=== PATIENT | female | born 1960 | race Caucasian/White ===

== ENCOUNTER 2016-08-09 02:23 | Emergency (ER) | payer OTHER ==
[2016-08-09] MEDS ORDERED: Bupivacaine 0.5% 10 ML VIAL ONE (02:40)
[2016-08-09] MEDS ORDERED: Tetracaine HCl 0.5% Ophth Soln 2 ML Bottle ONE (02:41)
[2016-08-09] MEDS ORDERED: Ketorolac Tromethamine 60 MG/2 ML VIAL ONE (03:34)
[2016-08-09] MEDS ORDERED: Fluorescein Opthalmic Strip ONE (04:05)
[2016-08-09] MEDS ORDERED: Sodium Chloride 0.9% 2,000 ML ONE (04:07)
[2016-08-09] MEDS ORDERED: Fentanyl 100 MCG/2 ML VIAL ONE ×2 (04:22→04:46)
[2016-08-09] MEDS ORDERED: Midazolam HCl 2 mg/2 ml Vial ONE ×2 (04:22→04:46)
[2016-08-09] MEDS ORDERED: Naloxone HCl 0.4 mg/ml Vial ONE (04:35)
[2016-08-09] MEDS ORDERED: Sodium Chloride 0.9% 1,000 ML ONE (05:03)
[2016-08-09] MEDS ORDERED: prednisoLONE 1% Ophth Susp 5 ml Bottle ONE (05:21)
== END 2016-08-09 05:50 | disposition home or self-care (01) ==
LOC: NAV ERS 02:23
DX: H10.213 Acute toxic conjunctivitis, bilateral (principal)
CPT/HCPCS: 65205; 99152; J1885; J2250; J2270; J2310; J3010; J3490; J7050